=== PATIENT | male | born 1945 | race Caucasian/White ===

== ENCOUNTER 2023-03-30 15:22 | Outpatient (REF) | payer OTHER, SELFPAY ==
[2023-03-30 17:33] LABS: Basophils Absolute Auto 0.03 K/uL (0.00-0.30); Basophils Percent Auto 0.3 % (0.0-3.0); Eosinophils Absolute Auto 0.09 K/uL (0.00-0.50); Eosinophils Percent Auto 0.9 % (0.0-7.0); Hematocrit 38.5 % (37.0-53.0); Immature Granulocytes Abs Auto 0.12 K/uL (0.00-0.30); Immature Granulocytes Pct Auto 1.2 %; Lymphocytes Percent Auto 10.6 % (20-44); Mean Corpuscular HGB Conc 34 gm/dL (32-36); Mean Corpuscular Hemoglobin 34 pg (26-34); Mean Corpuscular Volume 99 fL (80-100); Monocytes Percent Auto 6.4 % (0.0-11.0); Neutrophils Percent Auto 80.6 % (42.0-72.0); Red Blood Count 3.88 m/uL (4.30-5.90); White Blood Count* 10.31 K/uL (4.50-11.00)
[2023-03-30 17:38] LABS: Albumin* 4.2 g/dL (3.3-5.0); Chloride* 98 mmol/L (96-114)
[2023-03-30 17:39] LABS: Potassium* 4.9 mmol/L (3.6-5.1); Sodium* 139 mmol/L (135-149)
[2023-03-30 17:40] LABS: Platelet Count* 172 K/uL (140-440); Slide Review Reflex No
[2023-03-30 17:41] LABS: Anion Gap 19 mEq/L (7-15); Aspartate Amino Transferase* 33 U/L (12-35); Bilirubin Total* 0.4 mg/dL (0.1-1.5); Carbon Dioxide* 22 mmol/L (20-32); Creatinine* 1.2 mg/dL (0.5-1.5); Estimated Glomerular Filt Rate 63 ml/min; Total Protein* 7.2 g/dL (6.0-8.3)
[2023-03-30 17:42] LABS: Alanine Aminotransferase* 17 U/L (4-50); Alkaline Phosphatase* 97 U/L (40-150); Blood Urea Nitrogen* 28 mg/dL (7-30); Calcium* 9.2 mg/dL (8.4-10.6); Glucose* 209 mg/dL (60-115)
[2023-03-30 21:24] LABS: Phenytoin Dilantin* 8.5 ug/mL (10.0-20.0)
== END 2023-03-30 15:23 | disposition home or self-care (01) ==
LOC: NPINS 15:22
PROVIDERS: PCP Family Medicine; Visit Provider Family Medicine
DX: R56.9 Unspecified convulsions (principal)
CPT/HCPCS: 80048; 80076; 80185; 85025

== ENCOUNTER 2023-04-15 12:34 | Outpatient (CLI) | payer OTHER, SELFPAY | END 2023-04-15 12:35 | disposition home or self-care (01) | LOC: AMB 04-18 19:02 | PROVIDERS: PCP Family Medicine; Visit Provider Emergency Medicine Emergency Medical Services | DX: S09.90XA Unspecified injury of head, initial encounter (principal); W01.0XXA Fall on same level from slipping, tripping and stumbling without subsequent striking against object, initial encounter; Y92.129 Unspecified place in nursing home as the place of occurrence of the external cause | CPT/HCPCS: A0425; A0427 ==

== ENCOUNTER 2023-04-15 13:03 | Emergency (ER) | payer OTHER, SELFPAY ==
[2023-04-15 13:07] VITALS: BP 180/84; PULSE 66; RESP 14; TEMP 36.3; O2SAT 95; BMI 19.3
[2023-04-15 13:32] VITALS: BP 165/86; PULSE 67; RESP 14; O2SAT 97
--- NOTE | 2023-04-15 13:58 | CRLHL7_ITS ---
For Patients: As a result of the Century Cures Act, medical imaging exams and procedure reports are released immediately into your electronic medical record. You may view this report before your referring provider. If you have questions, please contact your health care provider. INDICATION: Injury COMPARISON: None TECHNIQUE: CT examination of the head was performed as axial sections without intravenous contrast. Images were obtained from the vertex of the skull through the skull base. Please note that all CT scans at this facility use dose modulation, iterative reconstruction, and/or weight-based dosing when appropriate to reduce radiation dose to as low as reasonably achievable. FINDINGS: The brain shows no sign of mass lesion, mass effect, hemorrhage, or edema. There are prominent extra-axial CSF spaces containing prominent bridging cortical veins. There is no evidence of intra axial or extra-axial blood on this exam. There are involutional changes. There is moderate to severe cortical atrophy and there is moderate to severe white matter disease. There is no hydrocephalus. 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 Cerebellar atrophy The visualized portions of the orbits are normal in appearance. Large subcutaneous hematoma in the right parietal occipital location. The osseous structures are normal in appearance with no sign of abnormality in the skull base or calvarium. IMPRESSION: 1. Large subcutaneous hematoma in the right parieto-occipital location. No calvarial fracture. 2. Atrophy and white matter disease. Right frontal encephalomalacia. Prominent extra-axial fluid spaces containing prominent bridging cortical veins. 3. There is no finding of intraparenchymal or extra-axial hemorrhage. Please note that all CT scans at this facility use dose modulation, iterative reconstruction, and/or weight-based dosing when appropriate to reduce radiation dose to as low as reasonably achievable. Dictated by Reuben Frost MD @ 04/15/2023 2:39:22 PM (Electronically Signed)
--- NOTE | 2023-04-15 13:59 | ED.HEATRA ---
HPI - Head Injury General Chief complaint: Head Injury/Pain Stated complaint: Head trauma Time Seen by Provider: 04/15/23 13:26 History of Present Illness HPI Narrative: This 77-year-old male comes in by ambulance because of a non witnessed fall at his living facility. He has significant dementia. He has a POLST stating DNR DNI and comfort cares only. He does have a hematoma on the occipital portion of his head and evidence of skin injury in this area. He is not showing any sign of neurologic deficit. At the time that I came into the room to visit him he was standing in the room and stated that he needed to use the restroom. He does not complain of any pain. Otherwise he is a poor historian. Related Data Home Medications Medication Instructions Recorded Confirmed alendronate 35 mg tablet 35 mg PO .weekly 04/15/23 04/15/23 amlodipine 10 mg tablet 10 mg PO DAILY 04/15/23 04/15/23 chlorhexidine gluconate 0.12 % 15 ml PO BID 04/15/23 04/15/23 mouthwash cholecalciferol (vitamin D3) 50 50 mcg PO DAILY 04/15/23 04/15/23 mcg (2,000 unit) capsule phenytoin sodium extended 100 mg 100 mg PO BID 04/15/23 04/15/23 capsule prednisone 10 mg tablet 10 mg PO DAILY 04/15/23 04/15/23 Allergies Allergy/AdvReac Type Severity Reaction Status Date / Time No Known Drug Allergies Allergy Verified 04/15/23 13:07 Review of Systems Narrative: Unable to obtain due to dementia. Exam Narrative: Exam Narrative: Constitutional: Well-developed, well-nourished, no acute distress. HEENT: Occipital laceration approximately 4 cm long with underlying hematoma. Neck: Normal range of motion. Nontender. Supple. Heart: Regular. No murmurs. Normal rate. Intact distal pulses. Lungs: Clear to auscultation. No chest discomfort. No wheezes, rhonchi, or rales. Abdomen: Normal bowel sounds. Nontender. No rebound tenderness. Genitalia: Deferred. Back: No midline tenderness. Normal range of motion. Extremities: Normal range of motion. No injury. Skin: Intact. No rash. Warm. No erythema or pallor. Neurologic: No altered sensation. No weakness. Alert and oriented. Psychiatric: No suicidality. No anxiety or depression. No insomnia. Nursing notes and vitals signs are reviewed. Const: Vital Signs, click to edit/add: Vital Signs - 24 hr 04/15/23 13:07 Temperature 97.3 F L Pulse Rate [Pulse Oximeter] 66 Respiratory Rate 14 Blood Pressure [Le ft Upper Arm] 180/84 H Pulse Oximetry 95 Oxygen Delivery Me thod Room Air Course Vital Signs Vital signs: Initial Vital Signs Temperature 97.3 F L 04/15/23 13:07 Temperature Source Temporal Artery Scan 04/15/23 13:07 Pulse Rate 66 04/15/23 13:07 Pulse Rhythm Regular 04/15/23 13:07 Respiratory Rate 14 04/15/23 13:07 Blood Pressure 180/84 H 04/15/23 13:07 Blood Pressure Mean 116 H 04/15/23 13:07 Blood Pressure Position Supine 04/15/23 13:07 Pulse Oximetry 95 04/15/23 13:07 Oxygen Delivery Method Room Air 04/15/23 13:07 Vital Signs Temperature 97.3 F L 04/15/23 13:07 Pulse Rate 66 04/15/23 13:07 Respiratory Rate 14 04/15/23 13:07 Blood Pressure 180/84 H 04/15/23 13:07 Pulse Oximetry 95 04/15/23 13:07 Oxygen Delivery Method Room Air 04/15/23 13:07 Temperature 97.3 F L 04/15/23 13:07 Pulse Rate 66 04/15/23 13:07 Respiratory Rate 14 04/15/23 13:07 Blood Pressure 180/84 H 04/15/23 13:07 Pulse Oximetry 95 04/15/23 13:07 Oxygen Delivery Method Room Air 04/15/23 13:07 MDM - Head Injury MDM Narrative Medical decision making narrative: This patient comes in for evaluation of head injury. He has a laceration in the occipital region with an underlying hematoma. CT imaging of the head and shows no acute intracranial findings. The patient does not appear to be in any distress. He is ambulatory. The wound on the back of his head was cleansed and explored to its base. After anesthesia with 1% lidocaine with epinephrine I used a staple or to approximate the wound edges. A total of 7 carol were placed. Imaging Data CT scan - head: Radiologist's impression: 1. Large subcutaneous hematoma in the right parieto-occipital location. No calvarial fracture. 2. Atrophy and white matter disease. Right frontal encephalomalacia. Prominent extra-axial fluid spaces containing prominent bridging cortical veins. 3. There is no finding of intraparenchymal or extra-axial hemorrhage. Discharge Plan Discharge Clinical Impression: Laceration of occipital scalp Patient Disposition: Home w/ Parent or Adult Condition: Improved Additional Instructions: Follow-up with clinic or urgent care in 5-7 days for staple removal. Return if worsening. Prescriptions: No Action alendronate 35 mg tablet 35 mg PO .weekly Rx Instructions: Give 1 tablet by mouth one time a day every Fri for bone health. phenytoin sodium extended 100 mg capsule 100 mg PO BID amlodipine 10 mg tablet 10 mg PO DAILY chlorhexidine gluconate 0.12 % mouthwash 15 ml PO BID cholecalciferol (vitamin D3) 50 mcg (2,000 unit) capsule 50 mcg PO DAILY prednisone 10 mg tablet 10 mg PO DAILY Follow Up/Referrals: Abhishek Fowler MD [Primary Care Provider] - Stand Alone Forms: [email or web address] Info Instructions
[2023-04-15 14:32] VITALS: BP 154/78; PULSE 71; RESP 12; O2SAT 92
[2023-04-15 15:02] VITALS: BP 154/73; PULSE 66; RESP 14; O2SAT 95
[2023-04-15 15:08] VITALS: BP 154/73; PULSE 65; RESP 12; TEMP 36.3
--- NOTE | 2023-04-15 15:21 | ED.NURSE ---
Discharge instructions provided over the phone to SNF RN: Jerri. Per RN, facility transport will be en route to transport Pt back to SNF.
== END 2023-04-15 15:32 | disposition home or self-care (01) ==
PROVIDERS: Emergency Provider Emergency Medicine Emergency Medical Services; PCP Family Medicine
DX: S01.01XA Laceration without foreign body of scalp, initial encounter (principal); W19.XXXA Unspecified fall, initial encounter
CPT/HCPCS: 12002; 70450; 99283; 99284

== ENCOUNTER 2023-04-24 09:36 | Outpatient (CLI) | payer OTHER, SELFPAY | END 2023-04-24 09:37 | disposition home or self-care (01) | LOC: AMB 16:02 | PROVIDERS: PCP Family Medicine; Visit Provider Emergency Medicine | DX: R41.82 Altered mental status, unspecified (principal) | CPT/HCPCS: A0425; A0429 ==

== ENCOUNTER 2023-04-24 09:52 | Emergency (ER) | payer OTHER, SELFPAY ==
[2023-04-24] VITALS (20 sets, daily range): BP systolic 128–145; BP diastolic 64–86; PULSE 65–103; RESP 16; TEMP 36.6; O2SAT 87–96; BMI 29.8
--- NOTE | 2023-04-24 10:30 | CRLHL7_ITS ---
For Patients: As a result of the Century Cures Act, medical imaging exams and procedure reports are released immediately into your electronic medical record. You may view this report before your referring provider. If you have questions, please contact your health care provider. CLINICAL HISTORY: Recent trauma. Altered mental status. TECHNIQUE: Standard helical CT image acquisition of the brain was performed. COMPARISON: Head CT dated 04/15/2023. FINDINGS: There is no intracranial hemorrhage, extra-axial collection, mass effect, or midline shift. [place]-white matter differentiation is preserved. Moderately advanced generalized parenchymal volume loss with resulting prominence of cerebral sulci and the ventricular system. Small area of encephalomalacia with adjacent gliosis in the right frontal operculum most consistent with a chronic infarct. Patchy and confluent hypoattenuation within the white matter of both hemispheres likely reflects sequela of chronic small vessel ischemia. No displaced calvarial fracture. Small to moderate sized right parietal subgaleal hematoma, decreased from the comparison study. Thinning of the ocular lenses. Very mild mucosal thickening of the maxillary sinuses and ethmoid air cells. The mastoid air cells are unremarkable. IMPRESSION: 1. No CT evidence of acute intracranial abnormality or closed head injury. 2. 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 3. Senescent changes including moderately advanced generalized parenchymal volume loss and findings likely reflecting sequela of chronic small vessel ischemia. 4. Interval decreased size of the right parietal subgaleal hematoma. Please note that all CT scans at this facility use dose modulation, iterative reconstruction, and/or weight-based dosing when appropriate to reduce radiation dose to as low as reasonably achievable. Dictated by Joaquin Lam MD @ 04/24/2023 11:10:24 AM (Electronically Signed)
[2023-04-24 11:21] LABS: Appearance Urine Slightly Cloudy (Clear); Bilirubin Urine 1+ (Negative); Blood Urine 2+ (Negative); Color Urine Brown (Yellow); Glucose Urine Negative (Negative); Ketones Urine 2+ (Negative); Leukocyte Esterase Urine Negative (Negative); Nitrite Urine Negative (Negative); Protein Urine 3+ (Negative); Specific Gravity Urine >= 1.030 (1.000-1.030); Urobilinogen Urine 0.2 (0.2-1.0); pH Urine 5.5 (5.0-8.5)
[2023-04-24 11:23] LABS: Basophils Absolute Auto 0.02 K/uL (0.00-0.30); Basophils Percent Auto 0.2 % (0.0-3.0); Eosinophils Absolute Auto 0.01 K/uL (0.00-0.50); Eosinophils Percent Auto 0.1 % (0.0-7.0); Hematocrit 37.7 % (37.0-53.0); Hemoglobin* 12.8 gm/dL (13.5-17.5); Immature Granulocytes Abs Auto 0.07 K/uL (0.00-0.30); Immature Granulocytes Pct Auto 0.7 %; Lymphocytes Percent Auto 8.1 % (20-44); Mean Corpuscular HGB Conc 34 gm/dL (32-36); Mean Corpuscular Hemoglobin 33 pg (26-34); Mean Corpuscular Volume 98 fL (80-100); Monocytes Percent Auto 14.1 % (0.0-11.0); Neutrophils Percent Auto 76.8 % (42.0-72.0); Platelet Count* 171 K/uL (140-440); RDW Coefficient of Variation % 13.8 % (11.5-15.5); Red Blood Count 3.85 m/uL (4.30-5.90); White Blood Count* 9.74 K/uL (4.50-11.00)
[2023-04-24 11:33] LABS: Chloride* 101 mmol/L (96-114); Potassium* 4.3 mmol/L (3.6-5.1); Sodium* 138 mmol/L (135-149)
[2023-04-24 11:36] LABS: Anion Gap 12 mEq/L (7-15); Blood Urea Nitrogen* 37 mg/dL (7-30); Carbon Dioxide* 25 mmol/L (20-32); Creatinine* 1.5 mg/dL (0.5-1.5); Est. Creatinine Clearance* 45.99; Estimated Glomerular Filt Rate 48 ml/min; Glucose* 133 mg/dL (60-115)
[2023-04-24 11:37] LABS: Calcium* 8.5 mg/dL (8.4-10.6)
--- NOTE | 2023-04-24 11:39 | ED_ITS ---
HPI - General Adult General Date Seen: 04/24/23 Chief complaint: Altered Mental Status Stated complaint: Confused post fall Time Seen by Provider: 04/24/23 10:28 History of Present Illness HPI narrative: This is a 77-year-old male with a history of dementia, and a recent mechanical fall with occipital scalp hematoma and laceration who was brought to the ER today from his memory care unit because of a change in his mental status. He fell about 9 days ago and hit the back of his head. He was seen here in the ER. He had a noncontrast head CT that showed a scalp hematoma but no intracranial bleeding. His scalp laceration was repaired carol. He was discharged to his memory care unit. Per report from the patient's power of state attorney, his brother Jaspreet, it sounds like he has been at his baseline since then. However this morning his nurses from his memory care unit noted that he changed. He was more agitated than normal. He was pulling at his depends which is not usual for him. As far as we know he has been normal lately. No other recent illnesses identified such as recent cough or fever, vomiting or diarrhea. As far as we know he has been taking his meds and eating and drinking normally up until this morning. When I talked to the patient he has no complaints. He is not sure why he is here in the ER. He has no pain. When asked directly, he has no complaints. No headache. No blurry vision. No nausea. No abdominal pain. No chest pain. No trouble breathing. Discussed with his brother and power of state attorney, Jaspreet, by phone. He agrees with the plan with to repeat a head CT and check some labs to look for other causes of an acute confusion this morning. Related Data Home Medications Medication Instructions Recorded Confirmed alendronate 35 mg tablet 35 mg PO .weekly 04/15/23 04/24/23 amlodipine 10 mg tablet 10 mg PO DAILY 04/15/23 04/24/23 chlorhexidine gluconate 0.12 % 15 ml PO BID 04/15/23 04/24/23 mouthwash cholecalciferol (vitamin D3) 50 50 mcg PO DAILY 04/15/23 04/24/23 mcg (2,000 unit) capsule phenytoin sodium extended 100 mg 100 mg PO BID 04/15/23 04/24/23 capsule prednisone 10 mg tablet 10 mg PO DAILY 04/15/23 04/24/23 aspirin 81 mg tablet,delayed 81 mg PO DAILY 04/24/23 04/24/23 release (Adult Aspirin Regimen) Allergies Allergy/AdvReac Type Severity Reaction Status Date / Time No Known Drug Allergies Allergy Verified 04/15/23 13:07 [facility] Social History Smoking Status: Never smoker How often do you have a drink containing alcohol: never AUDIT-C Alcohol total score: 0 Non-prescribed substance use: denies use Exam Narrative: Exam Narrative: Constitutional: Appears well-developed and well-nourished. Alert. Conversant. Non toxic. HENT: Head: Purplish/greenish occipital scalp hematoma roughly 4 x 6 cm. There is some scabbing overlying the patient's scalp laceration. I think I can see [address] There is no redness or warmth around the knee in laceration to suggest infection. No depressed skull fracture. No raccoon eyes or Agudelo sign.. Overlying scabbing was gently removed by nursing. I then removed 7 carol using the staple remover. Wound edges were well opposed. There was no significant erythema. No purulent drainage. No bleeding. No signs of wound infection. Nose: Nose normal. Mouth/Throat: Oral mucosa is clear and moist. no trismus. Pharynx normal. Tonsils symmetric. No tonsillar enlargement, erythema, or exudate. Eyes: Conjunctivae normal. EOM normal. Pupils equal, round, and reactive to light. No scleral icterus. Neck: Normal range of motion . no posterior midline tenderness or step-off. Neck supple. No tracheal deviation present. Cardiovascular: Normal rate, regular rhythm. No gallop. No friction rub. No murmur heard. Symmetric radial artery pulses Pulmonary/Chest: Effort normal. No stridor. No respiratory distress. No wheezes. No rales. No rhonchi . No tenderness. Abdominal: Soft. Bowel sounds normal. No distension. No mass. No tenderness. No rebound. No guarding. No CVA tenderness. Musculoskeletal: RUE: Normal range of motion. No tenderness. No deformity LUE: Normal range of motion. No tenderness. No deformity RLE: Normal range of motion. No edema. No tenderness. No deformity LLE: Normal range of motion. No edema. No tenderness. No deformity Neurological: Alert and oriented to person. He is a somewhat poor historian. He knows that he is in [place]. He knows that it is Tuesday. He cannot tell me what he ate for breakfast. He can not remember if he had a good Thanksgiving or not. Mental status normal. Attention normal. Speech fluent. Follows simple commands appropriately Cranial Nerves intact II-XII except I did not formally test gag or visual acuity. EOMI. Palate elevates symmetrically and tongue protrudes in the midline. Strength: 5/5 trapezius on the right and left 5/5 deltoid on the right and left 5/5 biceps on the right and left 5/5 triceps on the right and left 5/5 package dyer on the right and left 5/5 thumb opposition on the right and le ft 5/5 finger abduction on the right and le ft 5/5 hip flexors (L3) on the right and le ft 5/5 quadriceps (L4) on the right and lef t 5/5 tibialis anterior on the right and l eft 5/5 EHL (L5) on the right and left 5/5 gastrocnemius (S1) on the right and left 5/5 hamstring on the right and left Sensation intact to light touch in both upper extremities (C4-T1) Sensation intact to light touch in Both lower extremities (L4-S1). Coordination normal Skin: Skin is warm and dry. No rash noted. No pallor. Normal capillary refill. Psychiatric: Normal mood. Normal affect. Const: Vital Signs, click to edit/add: Vital Signs - 24 hr 04/24/23 10:05 04/24/23 10:25 04/24/23 10:30 Temperature 98 F Pulse Rate 81 103 H Pulse Rate [Pulse Oximeter] 84 Respiratory Rate 16 Blood Pressure Blood Pressure [Le ft Upper Arm] 144/86 H Pulse Oximetry 95 95 87 L Oxygen Delivery Me thod Room Air 04/24/23 10:31 04/24/23 10:32 04/24/23 11:00 Temperature Pulse Rate 83 81 82 Pulse Rate [Pulse Oximeter] Respiratory Rate Blood Pressure 138/82 Blood Pressure [Le ft Upper Arm] Pulse Oximetry 94 95 95 Oxygen Delivery Me thod 04/24/23 11:04 04/24/23 11:30 04/24/23 11:32 Temperature Pulse Rate 80 77 77 Pulse Rate [Pulse Oximeter] Respiratory Rate Blood Pressure 135/70 Blood Pressure [Le ft Upper Arm] Pulse Oximetry 94 90 89 Oxygen Delivery Me thod Course Vital Signs Vital signs: Initial Vital Signs Temperature 98 F 04/24/23 10:05 Temperature Source Temporal Artery Scan 04/24/23 10:05 Pulse Rate 84 04/24/23 10:05 Respiratory Rate 16 04/24/23 10:05 Blood Pressure 144/86 H 04/24/23 10:05 Blood Pressure Mean 105 04/24/23 10:05 Blood Pressure Position Supine 04/24/23 10:05 Pulse Oximetry 95 04/24/23 10:05 Oxygen Delivery Method Room Air 04/24/23 10:05 Vital Signs Temperature 98 F 04/24/23 10:05 Pulse Rate 84 04/24/23 10:05 Respiratory Rate 16 04/24/23 10:05 Blood Pressure 144/86 H 04/24/23 10:05 Pulse Oximetry 95 04/24/23 10:05 Oxygen Delivery Method Room Air 04/24/23 10:05 Temperature 98 F 04/24/23 10:05 Pulse Rate 77 04/24/23 11:32 Respiratory Rate 16 04/24/23 10:05 Blood Pressure 135/70 04/24/23 11:32 Pulse Oximetry 89 04/24/23 11:32 Oxygen Delivery Method Room Air 04/24/23 10:05 Medical Decision Making MDM Narrative Medical decision making narrative: 77-year-old gentleman with history of dementia sent to the ER today from his residential for any acute change of mental status that was noted by his nursing staff this morning He did have a trip and fall about 9 days ago with the occipital head injury and scalp laceration. He was seen here in the ER and has already had a normal noncontrast head CT. Nurses thought the bruise on the back of his hand might it bigger today and VS. We did repeat head CT scan which shows no sign of any underlying skull fracture or any delayed intracranial bleeding or subdural. On the CT scan, radiology comments that the actual scalp hematoma is actually decreased in size compared to 9 days ago. On my exam there is a hematoma there but I do not see evidence for a scalp cellulitis or abscess clinically. The patient's carol have been in for 9 days. We soaked the overlying scab here and removed it. We were able to remove the carol and there is no sign of infection along the wound edge are overlying the scalp hematoma. We considered possible other causes for his change in behavior today. Patient has no complaints and no symptoms. Consider atypical presentation of ACS. EKG shows left ventricular hypertrophy but no ischemia. Troponin is normal. CBC shows normal white count, baseline hemoglobin, normal platelet count. BMP shows normal sodium, potassium, calcium. Glucose normal. BUN slightly elevated at 37, up from recent baseline of 28. Creatinine 1.5, which is up slightly from his recent creatinine of 1.1. Suspect probably prerenal. No fever, leukocytosis, cough, signs of scalp her skin cellulitis. No clear infection. Urinalysis is brown in shows some hematuria but no evidence for pyuria or bacteria to suggest UTI. Unclear cause of hematuria. Recommend outpatient follow-up in clinic. Discussed with the patient's brother, Jaspreet, by phone. Discussed his test findings in detail. At this point no clear explanation for change in behavior. Possibly concussion?, although onset of the behavior change was about a week after the original fall. Consider possible UTI with hematuria on the urinalysis. At this point no clear definitive evidence for UTI so would hold off on antibiotics. Will send urine culture. Discussed with the [facility], [place]e. We discussed the patient's CT and lab findings in detail. Plan will be to monitor him clinically in his normal environment (to avoid agitation and sundowning with hospitalization). They will bring him back to the ER right away if he has any worsening symptoms, fever, or other concerning behavior. Lab Data Labs: Lab Results 04/24/23 04/24/23 Range/Units 10:46 11:00 WBC 9.74 (4.50-11.00) K/uL RBC 3.85 L (4.30-5.90) m/uL Hgb 12.8 L (13.5-17.5) gm/dL Hct 37.7 (37.0-53.0) % MCV 98 (80-100) fL MCH 33 (26-34) pg MCHC 34 (32-36) gm/dL RDW Coeff of Henry 13.8 (11.5-15.5) % Plt Count 171 (140-440) K/uL Neut % (Auto) 76.8 H (42.0-72.0) % Lymph % (Auto) 8.1 L (20-44) % [place] % (Auto) 14.1 H (0.0-11.0) % Eos % (Auto) 0.1 (0.0-7.0) % Baso % (Auto) 0.2 (0.0-3.0) % Neut # (Auto) 7.50 H (1.7-7.0) K/uL Lymph # (Auto) 0.80 L (0.90-2.90) K/uL [place] # (Auto) 1.40 H (0.00-0.90) K/UL Eos # (Auto) 0.01 (0.00-0.50) K/uL Baso # (Auto) 0.02 (0.00-0.30) K/uL Abs Immat Gran (auto) 0.07 (0.00-0.30) K/uL Imm/Tot Granulo (auto) 0.7 % Sodium 138 (135-149) mmol/L Potassium 4.3 (3.6-5.1) mmol/L Chloride 101 (96-114) mmol/L Carbon Dioxide 25 (20-32) mmol/L Anion Gap 12 (7-15) mEq/L BUN 37 H (7-30) mg/dL Creatinine 1.5 (0.5-1.5) mg/dL Estimated Creat Clear 45.99 Estimated GFR 48 ml/min Glucose 133 H (60-115) mg/dL Calcium 8.5 (8.4-10.6) mg/dL Troponin I 0.03 (0.01-0.04) ng/mL Urine Color Brown A (Yellow) Urine Appearance Slightly Cloudy A (Clear) Urine pH 5.5 (5.0-8.5) Ur Specific [place] >= 1.030 (1.000-1.030) Urine Protein 3+ A (Negative) Urine Glucose (UA) Negative (Negative) Urine Ketones 2+ A (Negative) Urine Blood 2+ A (Negative) Urine Nitrite Negative (Negative) Urine Bilirubin 1+ A (Negative) Urine Urobilinogen 0.2 (0.2-1.0) Ur Leukocyte Esterase Negative (Negative) Urine RBC 5-10 A (0-2) Urine WBC 0-2 (0-5) Ur Squamous Epith Cells Few (None-Few) Urine Bacteria None (None) Imaging Data CT scan - head: Attestation: I have reviewed the pertinent imaging results. Radiologist's impression: FINDINGS: There is no intracranial hemorrhage, extra-axial collection, mass effect, or midline shift. [place]-white matter differentiation is preserved. Moderately advanced generalized parenchymal volume loss with resulting prominence of cerebral sulci and the ventricular system. Small area of encephalomalacia with adjacent gliosis in the right frontal operculum most consistent with a chronic infarct. Patchy and confluent hypoattenuation within the white matter of both hemispheres likely reflects sequela of chronic small vessel ischemia. No displaced calvarial fracture. Small to moderate sized right parietal subgaleal hematoma, decreased from the comparison study. Thinning of the ocular lenses. Very mild mucosal thickening of the maxillary sinuses and ethmoid air cells. The mastoid air cells are unremarkable. IMPRESSION: 1. No CT evidence of acute intracranial abnormality or closed head injury. 2. 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 3. Senescent changes including moderately advanced generalized parenchymal volume loss and findings likely reflecting sequela of chronic small vessel ischemia. 4. Interval decreased size of the right parietal subgaleal hematoma. ECG Data Attestation: I personally reviewed and interpreted this ECG as follows: Interpretation: Normal sinus rhythm rate 87 AR 154 QRS axis left axis deviation. Voltage criteria for LVH. ST segment/T wave: Artifact in the baseline from tremor. Nonspecific flattening. No ST segment elevation or depression QTc: 495 Discharge Plan Discharge Clinical Impression: Hematoma of occipital region of scalp, Hematuria, Dementia Patient Disposition: Home, Self-Care Condition: Stable Instructions: Hematuria (ED), Scalp Contusion in Adults (ED) Additional Instructions: As we discussed, please bring him back to the ER right away if he has any other worsening symptoms such as increasing confusion, agitation, or free develops fever or other symptoms of an infection. Please follow-up with his primary care provider for recheck within 3-5 days. As them to recheck a urine sample to see if there is still blood in his urine. Prescriptions: No Action alendronate 35 mg tablet 35 mg PO .weekly Rx Instructions: Give 1 tablet by mouth one time a day every Fri for bone health. phenytoin sodium extended 100 mg capsule 100 mg PO BID amlodipine 10 mg tablet 10 mg PO DAILY chlorhexidine gluconate 0.12 % mouthwash 15 ml PO BID cholecalciferol (vitamin D3) 50 mcg (2,000 unit) capsule 50 mcg PO DAILY prednisone 10 mg tablet 10 mg PO DAILY aspirin [Adult Aspirin Regimen] 81 mg tablet,delayed release (DR/EC) 81 mg PO DAILY Follow Up/Referrals: Abhishek Fowler MD [Primary Care Provider] - Stand Alone Forms: [employer] Info Instructions
[2023-04-24 11:45] LABS: Slide Review Reflex No
[2023-04-24 11:48] LABS: Troponin I* 0.03 ng/mL (0.01-0.04)
[2023-04-24 11:48] LABS: Squamous Epithelial Cell Urine Few (None-Few); WBC Urine 0-2 (0-5)
--- NOTE | 2023-04-24 13:50 | ED.NURSE ---
[facility] on phone with MD receiving update.
--- NOTE | 2023-04-24 13:52 | ED.NURSE ---
Pt's wound soaking with sterile water and gauze to loosen scabs around carol. Carol removed by . Pt eating crackers and drinking juice.
--- NOTE | 2023-04-24 14:48 | ED.NURSE ---
Call to [facility] and [facility] RN to give update that pt will be discharged back to [facility]. Discharge instructions given to [facility] RN and RN denies further questions. POA gives verbal consent to incur EMS transport charges to bring pt back to facility. [facility] staff aware of ETA of pt to facility and will meet EMS upon arrival. No belongings noted with pt. Pt dressed back in clothing that he arrived in and pt urinates in urinal. Pt leaves ED via EMS. Discharge packet given to EMS to give to [facility] RN.
== END 2023-04-24 14:52 | disposition home or self-care (01) ==
PROVIDERS: Emergency Provider Emergency Medicine; PCP Family Medicine
DX: F03.90 Unspecified dementia, unspecified severity, without behavioral disturbance, psychotic disturbance, mood disturbance, and anxiety (principal); R31.9 Hematuria, unspecified; S00.10XA Contusion of unspecified eyelid and periocular area, initial encounter
CPT/HCPCS: 36415; 70450; 80048; 81001; 84484; 85025; 87086; 93005; 99284; 99285

== ENCOUNTER 2023-04-24 14:35 | Outpatient (CLI) | payer OTHER, SELFPAY | END 2023-04-24 14:36 | disposition home or self-care (01) | PROVIDERS: PCP Family Medicine; Visit Provider Emergency Medicine | DX: R31.9 Hematuria, unspecified (principal) | CPT/HCPCS: A0425; A0428 ==

== ENCOUNTER 2024-02-07 12:02 | Outpatient (REF) | payer OTHER, SELFPAY ==
[2024-02-07 12:33] LABS: Basophils Absolute Auto 0.07 K/uL (0.00-0.30); Basophils Percent Auto 0.8 % (0.0-3.0); Eosinophils Absolute Auto 0.24 K/uL (0.00-0.50); Eosinophils Percent Auto 2.8 % (0.0-7.0); Hematocrit 34.5 % (37.0-53.0); Hemoglobin* 12.9 gm/dL (13.5-17.5); Immature Granulocytes Abs Auto 0.05 K/uL (0.00-0.30); Immature Granulocytes Pct Auto 0.6 %; Lymphocytes Percent Auto 14.3 % (20-44); Mean Corpuscular HGB Conc 37 gm/dL (32-36); Mean Corpuscular Hemoglobin 38 pg (26-34); Mean Corpuscular Volume 102 fL (80-100); Monocytes Percent Auto 10.1 % (0.0-11.0); Neutrophils Absolute Auto 6.03 K/uL (1.7-7.0); Neutrophils Percent Auto 71.4 % (42.0-72.0); Platelet Count* 179 K/uL (140-440); RDW Coefficient of Variation % 14.3 % (11.5-15.5); Red Blood Count 3.39 m/uL (4.30-5.90); White Blood Count* 8.45 K/uL (4.50-11.00)
[2024-02-07 12:58] LABS: Slide Review Reflex No
[2024-02-07 13:03] LABS: Alkaline Phosphatase* 60 U/L (40-150); Aspartate Amino Transferase* 17 U/L (12-35); Bilirubin Direct* 0.3 mg/dL (0.0-0.5); Bilirubin Total* 0.4 mg/dL (0.1-1.5); Total Protein* 6.6 g/dL (6.0-8.3)
[2024-02-07 13:04] LABS: Alanine Aminotransferase* 11 U/L (4-50)
[2024-02-09 16:06] LABS: Phenytoin - Free Level 2.2 ug/mL (1.0-2.5); Phenytoin - Percent Free 12.3 % (8.0-14.0); Phenytoin - Total 17.5 ug/mL (10.0-20.0)
== END 2024-02-07 12:03 | disposition home or self-care (01) ==
LOC: NPINS 12:02
PROVIDERS: PCP Family Medicine; Visit Provider Nurse Practitioner Gerontology
DX: R46.89 Other symptoms and signs involving appearance and behavior (principal)
CPT/HCPCS: 80076; 80185; 80186; 85025

== ENCOUNTER 2024-11-05 08:54 | Outpatient (CLI) | payer OTHER, SELFPAY | END 2024-11-05 08:55 | disposition home or self-care (01) | LOC: AMB 11-07 12:07 | PROVIDERS: PCP Family Medicine; Visit Provider Emergency Medicine Emergency Medical Services | DX: S01.01XA Laceration without foreign body of scalp, initial encounter (principal); F03.90 Unspecified dementia, unspecified severity, without behavioral disturbance, psychotic disturbance, mood disturbance, and anxiety; W18.30XA Fall on same level, unspecified, initial encounter; Y92.129 Unspecified place in nursing home as the place of occurrence of the external cause | CPT/HCPCS: A0425; A0427 ==

== ENCOUNTER 2024-11-05 09:25 | Emergency (ER) | payer OTHER, SELFPAY ==
--- OUTSIDE RECORDS SUMMARY | 2024-11-05 09:27 | XMS_ITS | Clinical Summary ---
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 Take on empty stomach with full glass of water. Do not lie down for 1 hr. 12 Tablet 4 2 Active amLODIPine (NORVASC) 10 mg tabletIndications:B enign essential HTN Take 1 Tablet (10 mg) by mouth once daily. 90 Tablet 3 2 Active atorvastatin (LIPITOR) 80 mg tabletIndications:H yperlipidemia, unspecified hyperlipidemia type Take 1 Tablet (80 mg) by mouth at bedtime. 90 Tablet 3 2 Active donepeziL (ARICEPT) 10 mg tabletIndications:D ementia in Alzheimer's disease (HC) Take 1 Tablet (10 mg) by mouth at bedtime. 90 Tablet 3 2 Active phenytoin extended (DILANTIN) 100 mg ER capsuleIndications: Seizure (HC) Take 1 Capsule (100 mg) by mouth two times daily. 180 Capsule 3 2 Active predniSONE (DELTASONE) 10 mg tabletIndications:S eizure (HC) Take 1 Tablet (10 mg) by mouth once daily with a meal. 90 Tablet 3 2 Active spironolactone (ALDACTONE) 25 mg tabletIndications:H ypertension, unspecified type TAKE ONE TABLET BY MOUTH EVERY OTHER DAY 45 Tablet 3 2 Active cholecalciferol (VITAMIN D3) 2,000 unit capsuleIndications: Vitamin D insufficiency TAKE 1 CAPSULE (2,000 UNITS) BY MOUTH ONCE DAILY. 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 018 Dementia without behavioral disturbance 04/10/20 18 Moderate mitral regurgitation 04/10/2018 Immunizations Immunization Administration Dates Next Due COVID-19 vaccine ([employer] 30mcg/0.3mL) 12YO+ BIVALENT PF, MDV 02/26/2022 Influenza, Inactivated AIIV4 (Age 65+ Years) Preserv Free 02/26/2022,02/24/2021,03/06/2020 Influenza, Inactivated IIV3 (Age 65+ Years) Preserv Free 04/24/2019,03/13/2018 Pneumococcal Conj 20-valent (Prevnar 20) 022 Pneumococcal Poly,23-Valent (Pneumovax) 02/25/20 21 Family History Medical History Relation Name Comments Other Father at 98 Other Mother in mva gage und 64 Cancer-colon No Family History Cancer-prostate No Family History Relation Name Status Comments Father Mother Social History Tobacco Use Types Packs/Day Years Used Date Smoking Tobacco: Never Smokeless Tobacco: Never Tobacco Cessation:Counseling Given: Yes Alcohol Use Standard Drinks/Week Comments No 0 (1 standard drink = 0.6 oz pur e alcohol) PHQ-2 Answer Date Recorded PHQ-2 TOTAL SCORE 0 02/26/2022 Social Connections Answer Date Recorded Frequency of Communication with Friends and Fami ly Not on file 05/26/2021 Financial Resource Strain Answer Date R ecorded Difficulty of Paying Living Expenses Not on file 05/26/2021 Difficulty of Paying Living Expenses Not on file 05/26/2021 Sex and Gender Information Value Date Recorded Sex Assigned at Not on file Legal Sex Male 1:01 PM CDT Gender Identity Not on file Sexual Orientation Not on file Obstetrics History Last Filed Vital Signs Vital Sign Reading Time Taken Comments Blood Pressure 147/75 02/26/2022 10:45 AM CDT Pulse 67 02/26/2022 10:45 AM CDT Temperature 36.7 C (98.1 F) 07/19/2019 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 Respiratory Rate - - Oxygen Saturation 98% 02/26/2022 10:45 AM CDT Inhaled Oxygen Concentration - - Weight 96.9 kg (213 lb 9.6 oz) 02/26/2022 10:45 AM CDT Height 181.6 cm (5' 11.5) 02/26/2022 10:45 AM C DT Body Mass Index 29.38 02/26/2022 10:45 AM CDT Plan of Treatment Health Maintenance Due Date Last Done Comments Tdap 1957 Tetanus booster 1966 Zoster (shingles) series for age 50+ (1 of 2) 1996 RSV vaccine for adults or (1 - 1-dose 75+ series) 2021 BMI (ht and wt on same day) for age 18+ 02/26/2023 02/26/2022, 02/24/2021, 03/27/2020, Additional history exists Depression screening for age 12+ 02/26/2023 02/26/2022, 03/27/2020, 04/24/2019, Additional history exists Medicare Wellness for age 65+ 02/27/2023 02/26/2022, 03/27/2020, 03/13/2018 COVID-19 vaccine series ( season) 2024 02/26/2022, 11/23/2021, 04/30/2021, Additional history exists Influenza Vaccine (Season Ended) 2025 02/26/2022, 02/24/2021, 03/06/2020, Additional history exists Hepatitis C screening for age 18-79 Completed 02/24/2021 Pneumococcal series for age 50+ Completed 02/26/2022, 02/24/2021 Hepatitis B series for 19+ Aged Out N o longer eligible based on patient's age to complete this topic Procedures Procedure Name Priority Date/Time Associated Diagnosis Comments ANTI HCV Routine 02/24/2021 10:15 AM CDT Need for hepatitis C screening test from Last 3 Months or Most Recently Relevant to Health Maintenance Results * ANTI HCV (02/24/2021 10:15 AM CDT) HEPATITIS C ANTIBODY Non-React seamus Non-React seamus 02/24/2021 6:20 PM CDT [facility] Comment:Antibodies to HCV no t detected; does not exclude the possibility of exposure to HCV. Blood BLOOD SPECIMEN / Unknown Butterfly / Unknown 02/24/2021 10:15 AM CDT 02/24/2021 10:15 AM CDT us You Stiles MD SEND OUTS Final Result [facility] 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
[2024-11-05 09:34] VITALS: BP 147/74; PULSE 72; RESP 16; TEMP 36.2; O2SAT 99; BMI 24.4
--- NOTE | 2024-11-05 10:16 | ED_ITS ---
HPI - General Adult General Chief complaint: Fall/Minor Trauma Stated complaint: Fall, L arm deformity Time Seen by Provider: 11/05/24 10:14 History of Present Illness HPI narrative: patient resides at [facility] and had fallen unsure if last night or when. was checked on at 0800 found lying in the bed with some dried blood and bruising on left arm and on the left side of the head a small lac. EMS placed a c?collar on as patient is not complaining of anything plus noted on the left arm/wrist area is deformed and hard. EMS placed a Justino splint on. BS-- 128. 79 year old man presenting to the ER via EMS following a presumed fall overnight. Is a resident of Memory Care Unit locally. During interview here Mr. CRISTIANO Morelos offers that ?I fell?. As far as what other events were seems to be unclear. He denies any pain. Upon review of med list does not appear anticoagulated. Is noted to have injured his left scalp thought to have deformity his forearm. justino splint was placed. Further information obtained from brother on arrival is that Mr. Webber has been for some time declining his seizure medication. Looks like on review of records that does take phenytoin. Is quite upset with having to be in memory care. Related Data Home Medications ?Medication ?Instructions ?Recorded ?Confirmed amlodipine 10 mg tablet 10 mg PO DAILY 04/15/2302/21 cholecalciferol (vitamin D3) 50 50 mcg PO DAILY 11/05/24 mcg (2,000 unit) capsule phenytoin sodium extended 100 mg 100 mg PO BID 3 11/05/24 capsule prednisone 10 mg tablet 10 mg PO DAILY 04/15/2302/21 aspirin 81 mg tablet,delayed 81 mg PO DAILY 04/24/23 0 11/05/24 release (Adult Aspirin Regimen) sertraline 25 mg tablet 25 mg PO DAILY 11/05/2402/21 spironolactone 25 mg tablet 50 mg PO Q1D 11/05/2402/21 Allergies Allergy/AdvReac Type Severity Reaction Status Date / Time No Known Drug Allergies Allergy Verified 11/05/24 09:45 Review of Systems Status of ROS: Reports: unobtainable due to mental status [facility] Medical History POLST (Physician Orders for Life-Sustaining Treatment) ?Z78.9 - Other specified health status (ICD-10) Social History Smoking Status: Never smoker How often do you have a drink containing alcohol: never AUDIT-C Alcohol total score: 0 Non-prescribed substance use: denies use Exam Narrative: Exam Narrative: Resting easily when I enter the room. Cranial nerves 2-12 to be intact. Pupils are equal. Moving all extremities without apparent difficulty other than mobility limited by Justino splint on the left forearm. There is a firm nearly 1 in nodule the radial side of the radius about 4 in from the wrist. Is sore to stress of the distal bone particularly the radius. Head with a 1-1/4 inch large clot forming at the left occipital parietal scalp. No defect otherwise appreciated. Neck is supple and nontender and I have removed the C-collar. Dentition looks to be intact. Back is without deformity or tenderness. Breathing easily. Lungs appear to be clear. Heart with some ectopic beats. Extremities are without edema otherwise. Following cleaning of head it is apparent that this wound on the posterior left scalp would not require intervention at this time. It is more of an abrasion about a quarter in diameter with some subcutaneous tissue separation. Const: Vital Signs, click to edit/add: Vital Signs - 24 hr 11/05/24 09:34 11/05/24 13:44 Temperature 97.1 F L Pulse Rate [Pulse Oximeter] 72 67 Respiratory Rate 16 18 Blood Pressure [Ri ght Upper Arm] 147/74 H 149/79 H Pulse Oximetry 99 95 Oxygen Delivery Me thod Room Air Room Air Documenting provider has reviewed patient's vital signs: yes Course Vital Signs Vital signs: Initial Vital Signs Temperature 97.1 F L 11/05/24 09:34 Temperature Source Temporal Artery Scan 11/05/24 09:34 Pulse Rate 72 11/05/24 09:34 Respiratory Rate 16 11/05/24 09:34 Blood Pressure 147/74 H 11/05/24 09:34 Blood Pressure Mean 98 11/05/24 09:34 Blood Pressure Position Sitting 11/05/24 09:34 Pulse Oximetry 99 11/05/24 09:34 Oxygen Delivery Method Room Air 11/05/24 09:34 Vital Signs Temperature 97.1 F L 11/05/24 09:34 Pulse Rate 72 11/05/24 09:34 Respiratory Rate 16 11/05/24 09:34 Blood Pressure 147/74 H 11/05/24 09:34 Pulse Oximetry 99 11/05/24 09:34 Oxygen Delivery Method Room Air 11/05/24 09:34 Temperature 97.1 F L 11/05/24 09:34 Pulse Rate 67 11/05/24 13:44 Respiratory Rate 18 11/05/24 13:44 Blood Pressure 149/79 H 11/05/24 13:44 Pulse Oximetry 95 11/05/24 13:44 Oxygen Delivery Method Room Air 11/05/24 13:44 Medications Administered Medications: Discontinued Medications Generic Name Dose Route Start Last Admin Trade Name Freq PRN Reason Stop Dose Admin Sodium Chloride 500 mls @ 500 mls/hr 11/05/24 10:27 11/05/24 12:58 0.9 % Sodium Chloride 500 Ml IV 11/05/24 11:26 Infused .Q1H ONE Infusion Phenytoin Sodium 400 mg/ 258 mls @ 258 mls/hr 11/05/24 12:57 11/05/24 14:44 Sodium Chloride IVPB 11/05/24 12:58 Infused ONCE ONE Infusion Medical Decision Making MDM Narrative Medical decision making narrative: Initially had thought to be a fall event. With further discussion it appears that this may have been unwitnessed seizure as well. Check for arrhythmia as well. Check basic labs. Load with antiepileptic. Head CT independently reviewed by me appears to be without acute intracranial abnormality X-ray of the left forearm is without bony abnormality by my independent review Given normal saline and phenytoin load here in the emergency department Radiology over-read below INDICATION: Fall and head injury TECHNIQUE: Non-contrast CT of the head is submitted. COMPARISON: CT brain dated 04/24/2023 FINDINGS: Moderate to severe diffuse parenchymal volume loss with commensurate ex vacuo dilatation of the ventricles and sulci. Redemonstrated right anterior MCA territory chronic encephalomalacia. There are nonspecific low attenuation white matter changes consistent with chronic microvascular disease. No sign of mass, hemorrhage, or midline shift. The visualized paranasal sinuses and mastoid air cells are essentially clear. The visualized orbits are grossly unremarkable. No skull fractures. Left parietotemporal scalp swelling with associated soft tissue gas, indicating a laceration. No radiopaque foreign bodies. IMPRESSION: No acute intracranial findings. Left parietotemporal scalp laceration. Please note that all CT scans at this facility use dose modulation, iterative reconstruction, and/or weight-based dosing when appropriate to reduce radiation dose to as low as reasonably achievable. Dictated by Sánchez Drummond MD @ 11/05/2024 10:56:13 AM No further events during time in the emergency department. See patient discharge plan for further discussion Please restart your phenytoin and take it regularly. It does not benefit you not to take it; only hurts you. I do not know if you had a seizure or not. You did receive a loading dose of phenytoin here of 400 mg IV. Stay well-hydrated. Keep as active as you can. You might want ice the left forearm couple of times daily over the next couple of days. Can leave the Aron wrap on over if and the course of today but would definitely look at this again tomorrow. Medical Records Medical records reviewed: Yes I reviewed the patient's medical records Lab Data Lab results reviewed: Yes I reviewed the patient's lab results Labs: Lab Results 11/05/24 11/05/24 11/05/24 Range/Units 11:05 12:18 12:29 WBC 12.76 H (4.50-11.00) K/uL RBC 3.95 L (4.30-5.90) m/uL Hgb 12.9 L (13.5-17.5) gm/dL Hct 38.2 (37.0-53.0) % MCV 97 (80-100) fL MCH 33 (26-34) pg MCHC 34 (32-36) gm/dL RDW Coeff of Henry 13.8 (11.5-15.5) % Plt Count 174 (140-440) K/uL Neut % (Auto) 87.1 H (42.0-72.0) % Lymph % (Auto) 4.9 L (20-44) % [place] % (Auto) 6.7 (0.0-11.0) % Eos % (Auto) 0.4 (0.0-7.0) % Baso % (Auto) 0.3 (0.0-3.0) % Neut # (Auto) 11.10 H (1.7-7.0) K/uL Lymph # (Auto) 0.60 L (0.90-2.90) K/uL [place] # (Auto) 0.90 (0.00-0.90) K/UL Eos # (Auto) 0.10 (0.00-0.50) K/uL Baso # (Auto) 0.00 (0.00-0.30) K/uL Abs Immat Gran (auto) 0.10 (0.00-0.30) K/uL Imm/Tot Granulo (auto) 0.6 % Sodium 140 (135-149) mmol/L Potassium 4.4 (3.6-5.1) mmol/L Chloride 105 (96-114) mmol/L Carbon Dioxide 28 (20-32) mmol/L Anion Gap 7 (7-15) mEq/L BUN 20 (7-30) mg/dL Creatinine 1.0 (0.5-1.5) mg/dL Estimated Creat Clear 66.82 Estimated GFR 77 ml/min Glucose 128 H (60-115) mg/dL Calcium 9.0 (8.4-10.6) mg/dL Urine Color Yellow (Yellow) Urine Appearance Clear (Clear) Urine pH 7.5 (5.0-8.5) Ur Specific [place] 1.015 (1.000-1.030) Urine Protein Negative (Negative) Urine Glucose (UA) Negative (Negative) Urine Ketones Negative (Negative) Urine Blood Trace-intact A (Negative) Urine Nitrite Negative (Negative) Urine Bilirubin Negative (Negative) Urine Urobilinogen 0.2 (0.2-1.0) Ur Leukocyte Esterase Negative (Negative) Urine RBC 0-2 (0-2) Urine WBC 0-2 (0-5) Ur Squamous Epith Cells Few (None-Few) Amorphous Sediment Moderate A (None) Urine Bacteria None (None) Phenytoin 14.1 (10.0-20.0) ug/mL Lab Acknowledgement Test Added ECG Data Attestation: I personally reviewed and interpreted this ECG as follows: (Normal sinus rhythm. Rate of 61. No acute ischemic changes apparent. I believe is similar to prior from 2022 though difficult interpret baseline at that time) Discharge Plan Discharge Clinical Impression: Multiple contusions, Closed head injury Patient Disposition: Home w/ Parent or Adult Condition: Stable Additional Instructions: Please restart your phenytoin and take it regularly. It does not benefit you not to take it; only hurts you. I do not know if you had a seizure or not. You did receive a loading dose of phenytoin here of 400 mg IV. Stay well-hydrated. Keep as active as you can. You might want ice the left forearm couple of times daily over the next couple of days. Can leave the Aron wrap on over if and the course of today but would definitely look at this again tomorrow. Prescriptions: No Action phenytoin sodium extended 100 mg capsule 100 mg PO BID amlodipine 10 mg tablet 10 mg PO DAILY cholecalciferol (vitamin D3) 50 mcg (2,000 unit) capsule 50 mcg PO DAILY prednisone 10 mg tablet 10 mg PO DAILY aspirin [Adult Aspirin Regimen] 81 mg tablet,delayed release (DR/EC) 81 mg PO DAILY spironolactone 25 mg tablet 50 mg PO Q1D Patient Comments: takes total of 75 mg daily sertraline 25 mg tablet 25 mg PO DAILY Follow Up/Referrals: Abhishek Fowler MD [Primary Care Provider, Family Practice] Stand Alone Forms: [employer] Info Instructions
--- NOTE | 2024-11-05 10:22 | CRLHL7_ITS ---
For Patients: As a result of the Cures Act, medical imaging exams and procedure reports are released immediately into your electronic medical record. You may view this report before your referring provider. If you have questions, please contact your health care provider. INDICATION: Fall. Pain. TECHNIQUE: Left forearm two views. COMPARISON: None. FINDINGS: No acute fracture or dislocation. No additional osseous abnormality. Distal soft tissue swelling. No radiopaque body. IMPRESSION: No acute osseous abnormality. Dictated by Osvaldo Dunaway MD @ 11/05/2024 11:22:41 AM (Electronically Signed)
--- NOTE | 2024-11-05 10:23 | CRLHL7_ITS ---
For Patients: As a result of the Century Cures Act, medical imaging exams and procedure reports are released immediately into your electronic medical record. You may view this report before your referring provider. If you have questions, please contact your health care provider. INDICATION: Fall and head injury TECHNIQUE: Non-contrast CT of the head is submitted. COMPARISON: CT brain dated 04/24/2023 FINDINGS: Moderate to severe diffuse parenchymal volume loss with commensurate ex vacuo dilatation of the ventricles and sulci. Redemonstrated right anterior MCA territory chronic encephalomalacia. There are nonspecific low attenuation white matter changes consistent with chronic microvascular disease. No sign of mass, hemorrhage, or midline shift. The visualized paranasal sinuses and mastoid air cells are essentially clear. The visualized orbits are grossly unremarkable. No skull fractures. Left parietotemporal scalp swelling with associated soft tissue gas, indicating a laceration. No radiopaque foreign bodies. IMPRESSION: No acute intracranial findings. Left parietotemporal scalp laceration. Please note that all CT scans at this facility use dose modulation, iterative reconstruction, and/or weight-based dosing when appropriate to reduce radiation dose to as low as reasonably achievable. Dictated by Sánchez Drummond MD @ 11/05/2024 10:56:13 AM (Electronically Signed)
[2024-11-05 11:15] LABS: Basophils Percent Auto 0.3 % (0.0-3.0); Eosinophils Percent Auto 0.4 % (0.0-7.0); Hematocrit 38.2 % (37.0-53.0); Hemoglobin* 12.9 gm/dL (13.5-17.5); Immature Granulocytes Pct Auto 0.6 %; Lymphocytes Percent Auto 4.9 % (20-44); Mean Corpuscular HGB Conc 34 gm/dL (32-36); Mean Corpuscular Hemoglobin 33 pg (26-34); Mean Corpuscular Volume 97 fL (80-100); Monocytes Percent Auto 6.7 % (0.0-11.0); Neutrophils Percent Auto 87.1 % (42.0-72.0); Platelet Count* 174 K/uL (140-440); RDW Coefficient of Variation % 13.8 % (11.5-15.5); Red Blood Count 3.95 m/uL (4.30-5.90); White Blood Count* 12.76 K/uL (4.50-11.00)
[2024-11-05 11:19] LABS: Slide Review Reflex No
[2024-11-05] MEDS: 0.9 % SODIUM CHLORIDE 500 ML 500 ML IV (11:28)
[2024-11-05 11:35] LABS: Chloride* 105 mmol/L (96-114); Potassium* 4.4 mmol/L (3.6-5.1); Sodium* 140 mmol/L (135-149)
[2024-11-05 11:38] LABS: Anion Gap 7 mEq/L (7-15); Blood Urea Nitrogen* 20 mg/dL (7-30); Carbon Dioxide* 28 mmol/L (20-32); Est. Creatinine Clearance* 66.82; Estimated Glomerular Filt Rate 77 ml/min; Glucose* 128 mg/dL (60-115)
[2024-11-05 12:28] LABS: Appearance Urine Clear (Clear); Bilirubin Urine Negative (Negative); Blood Urine Trace-intact (Negative); Color Urine Yellow (Yellow); Glucose Urine Negative (Negative); Ketones Urine Negative (Negative); Leukocyte Esterase Urine Negative (Negative); Nitrite Urine Negative (Negative); Protein Urine Negative (Negative); Specific Gravity Urine 1.015 (1.000-1.030); Urobilinogen Urine 0.2 (0.2-1.0); pH Urine 7.5 (5.0-8.5)
[2024-11-05 12:38] LABS: Amorphous Sediment Urine Moderate; RBC Urine 0-2 (0-2); Squamous Epithelial Cell Urine Few (None-Few); WBC Urine 0-2 (0-5)
[2024-11-05 13:44] VITALS: BP 149/79; PULSE 67; RESP 18; O2SAT 95
[2024-11-05 14:53] LABS: Phenytoin Dilantin* 14.1 ug/mL (10.0-20.0)
== END 2024-11-05 14:47 | disposition home or self-care (01) ==
PROVIDERS: Emergency Provider Family Medicine; PCP Family Medicine
DX: S01.01XA Laceration without foreign body of scalp, initial encounter (principal); S50.12XA Contusion of left forearm, initial encounter; W19.XXXA Unspecified fall, initial encounter
CPT/HCPCS: 36415; 70450; 73090; 80048; 80185; 81001; 85025; 93005; 96365; 99284; 99285; J1165; J7030; J7050

== ENCOUNTER 2025-04-17 08:46 | Outpatient (REF) | payer OTHER, SELFPAY ==
[2025-04-17 09:36] LABS: Hematocrit* 32.6 % (37.0-53.0); Hemoglobin* 11.9 gm/dL (13.5-17.5); Immature Granulocytes Abs Auto 0.05 K/uL (0.00-0.30); Immature Granulocytes Pct Auto 0.7 %; Mean Corpuscular HGB Conc 37 gm/dL (32-36); Mean Corpuscular Hemoglobin 37 pg (26-34); Mean Corpuscular Volume 102 fL (80-100); RDW Coefficient of Variation % 14.1 % (11.5-15.5); Red Blood Count* 3.21 m/uL (4.30-5.90); White Blood Count* 6.80 K/uL (4.50-11.00)
[2025-04-17 09:38] LABS: Lymphocytes Absolute Auto 1.20 K/uL (0.90-2.90); Slide Review Reflex No
[2025-04-17 09:53] LABS: Chloride* 104 mmol/L (96-114); Potassium* 4.3 mmol/L (3.6-5.1); Sodium* 139 mmol/L (135-149)
[2025-04-17 09:56] LABS: Anion Gap 6 mEq/L (7-15); Blood Urea Nitrogen* 21 mg/dL (7-30); Calcium* 8.8 mg/dL (8.4-10.6); Carbon Dioxide* 29 mmol/L (20-32); Creatinine* 1.1 mg/dL (0.5-1.5); Estimated Glomerular Filt Rate 69 ml/min; Glucose* 85 mg/dL (60-115)
--- OUTSIDE RECORDS SUMMARY | 2025-04-18 00:14 | XMS_ITS | Clinical Summary ---
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 018 Dementia without behavioral disturbance 04/10/20 18 Moderate mitral regurgitation 04/10/2018 Immunizations Immunization Administration Dates Next Due COVID-19 vaccine ([employer] 30mcg/0.3mL) 12YO+ BIVALENT PF, MDV 02/26/2022 Influenza, [...] 36.7 C (98.1 F) 07/19/2019 11:28 AM TESTING AND REGULATING CHIEF Respiratory Rate - - Oxygen Saturation 98% 02/26/2022 10:45 AM CDT Inhaled Oxygen Concentration - - Weight 96.9 kg (213 lb 9.6 oz) 02/26/2022 10:45 AM CDT Height 181.6 cm (5' 11.5) 02/26/2022 10:45 AM C DT Body Mass Index 29.38 02/26/2022 10:45 AM CDT Plan of Treatment Health Maintenance Due Date Last Done Comments Tetanus booster 1957 Zoster (shingles) series for age 50+ (1 of 2) 1996 RSV vaccine for adults or (1 - 1-dose 75+ series) 2021 BMI (ht and wt on same day) for age 18+ 02/26/2023 02/26/2022, 02/24/2021, 03/27/2020, Additional history exists Depression screening for age 12+ 02/26/2023 02/26/2022, 03/27/2020, 04/24/2019, Additional history exists Medicare Wellness for age 65+ 02/27/2023 02/26/2022, 03/27/2020, 03/13/2018 Influenza Vaccine (#1) 2025 2, 02/24/2021, 03/06/2020, Additional history exists Hepatitis C [...] seamus Non-React seamus 02/24/2021 6:20 PM CDT [facility] Comment:Antibodies to HCV no t detected; does not exclude the possibility of exposure to HCV. Blood BLOOD SPECIMEN / Unknown Butterfly / Unknown 02/24/2021 10:15 AM CDT 02/24/2021 10:15 AM CDT us You Stiles MD SEND OUTS Final Result [facility] [address] [place] [address], [place] from Last 3 Months or Most Recently Relevant to Health [place] [address] [employer] CHOICE PPO MR Advance Directives Documents on File Type Date Recorded Patient Black Top Roller Expl anation POLST 07/08/2022 Power of Insole Taper 02/22/2018 3:03 PM MEDIC AL POWER OF CLOTH TESTER, BRANT PÉREZ, 10/14/2011
== END 2025-04-17 08:47 | disposition home or self-care (01) ==
LOC: NPINS 08:46
PROVIDERS: PCP Family Medicine; Visit Provider Nurse Practitioner Gerontology
DX: R53.1 Weakness (principal); G40.909 Epilepsy, unspecified, not intractable, without status epilepticus
CPT/HCPCS: 80048; 80185; 80186; 85025